=== PATIENT | female | born 1955 ===

== ENCOUNTER 2024-09-18 14:27 | Outpatient (CLI) | payer MEDICARE, BC, SELFPAY ==
[2024-09-18 17:01] LABS: HCT 36.3 % (36.0-46.0); HGB 12.2 g/dL (11.2-15.7); MCH 33.5 pg (27.0-33.0); MCHC 33.6 % (32.0-36.0); MCV 100 fL (80-95); MPV 9.6 fL (8.0-11.0); Platelet Count 253 10^3/uL (130-400); RBC 3.64 10^6/uL (3.93-5.22); RDW 13.1 % (11.7-14.6); RDW-SD 48.1 fL; WBC 5.11 10^3/uL (4.4-10.8)
[2024-09-18 17:58] LABS: Hemoglobin A1C 5.2 % (<5.7)
[2024-09-18 18:39] LABS: ALT 31 U/L (14-59); AST 26 U/L (15-37); Albumin 3.9 g/dL (3.4-5.0); Alkaline Phosphatase 70 U/L (46-116); Anion Gap 10.3 mmol/L (3-11); BUN 13 mg/dL (7-18); Bilirubin, Total 0.7 mg/dL (0.2-1.0); CO2 26.7 mmol/L (21.0-32.0); Calcium 8.8 mg/dL (8.5-10.1); Calculated LDL 108 mg/dL (<100); Chloride 100 mmol/L (98-107); Cholesterol 221 mg/dL (<200); Estimated GFR 94.15 (mL/min/1.73m2); Glucose 95 mg/dL (74-106); HDL Cholesterol 88 mg/dL (>or=50); Potassium 4.6 mmol/L (3.5-5.1); Sodium 137 mmol/L (136-145); Total Protein 7.6 g/dL (6.4-8.2); Triglyceride 125 mg/dL (<150); Vitamin B12 163 pg/mL (193-986)
== END 2024-09-18 14:28 | disposition home or self-care (01) ==
LOC: LBO 14:29
PROVIDERS: Visit Provider Family Medicine
DX: E11.9 Type 2 diabetes mellitus without complications (principal)
CPT/HCPCS: 36415; 80053; 80061; 85027; 82607; 83036; 84443